=== PATIENT | male | born 2000 | race Caucasian/White ===

== ENCOUNTER 2020-05-28 09:16 | Emergency (ER) | payer OTHER ==
[~2020-05-28] VITALS: Ht 188 cm; Wt 100.6 kg
--- NOTE | 2020-05-28 10:38 | REP ---
INDICATION: R ankle pain. COMPARISON: None. TECHNIQUE: Four views. FINDINGS: Four views of the right ankle demonstrate intact ankle mortise. No fracture or subluxation is seen. Soft tissues are unremarkable. IMPRESSION: Negative right ankle radiographs. No fracture seen. <Electronically signed by Alejandro Agudelo > 05/28/20 0695
--- NOTE | 2020-05-28 10:39 | REP ---
INDICATION: R foot pain, ttp 4/5th metacarpals. COMPARISON: Ankle series today TECHNIQUE: Four views FINDINGS: There is no fracture or focal bone lesion. Articulations in between the phalanges and carpal bones are unremarkable the MTP joints were intact talonavicular and calcaneocuboid joints normal. Subtalar joints intact talus calcaneus without fracture. No heel spurs. IMPRESSION: Negative right foot for fracture. <Electronically signed by Saran Rios > 05/28/20 3112
[2020-05-28 11:41] VITALS: BP 138/77
== END 2020-05-28 11:44 | disposition home or self-care (01) ==
LOC: M ED 09:16
DX: S93.601A Unspecified sprain of right foot, initial encounter (principal); S96.211A Strain of intrinsic muscle and tendon at ankle and foot level, right foot, initial encounter; X50.1XXA Overexertion from prolonged static or awkward postures, initial encounter; Y92.138 Other place on military base as the place of occurrence of the external cause; Y93.02 Activity, running; Y99.1 Military activity

== ENCOUNTER 2020-08-16 08:30 | Emergency (ER) | payer OTHER ==
[~2020-08-16] VITALS: Ht 188 cm; Wt 112.0 kg
--- OUTSIDE RECORDS SUMMARY | 2020-08-16 08:36 | CCD ---
Author Author [facility] Organization [facility] Address Unknown Phone Unavailable Support Name Relationship Address Phone [facility] Next Of Kin [address] [place] [address] Unavailable WILLARD HWANG Next Of Kin [address] [place] [address] Re-disclosure Warning The records that you are about to access may contain information from federally-assisted alcohol or drug abuse programs. If such information is present, then the following federally mandated warning applies: This information has been disclosed to you from records protected by federal confidentiality rules (42 CFR part 2). The federal rules prohibit you from making any further disclosure of this information unless further disclosure is expressly permitted by the written consent of the person to whom it pertains or as otherwise permitted by 42 CFR part 2. A general authorization for the release of medical or other information is NOT sufficient for this purpose. The Federal rules restrict any use of the information to criminally investigate or prosecute any alcohol or drug abuse patient.The records that you are about to access may contain highly sensitive health information, the redisclosure of which is protected by Article 27-F of the [facility] Public Health law. If you continue you may have access to information: Regarding HIV / AIDS; Provided by facilities licensed or operated by the [facility] Office of Mental Health; or Provided by the [facility] Office for People With Developmental Disabilities. If such information is present, then the following [facility] mandated warning applies: This information has been disclosed to you from confidential records which are protected by state law. State law prohibits you from making any further disclosure of this information without the specific written consent of the person to whom it pertains, or as otherwise permitted by law. Any unauthorized further disclosure in violation of state law may result in a fine or penitentiary sentence or both. A general authorization for the release of medical or other information is NOT sufficient authorization for further disc losure. Insurance Providers Payer name Policy type / Coverage type Policy ID Covered constitution party ID Covered constitution party's relationship to flood Policy Flood Plan Information [employer] [id number]
[2020-08-16] MEDS ORDERED: NS 1,000 ML IV ONE (09:00)
[2020-08-16 09:15] LABS: BASO % 0.4 % (0.0-1.0); EOS # 0.4 10^3/uL (0.0-0.5); EOS % 5.6 % (0.0-3.0); HEMOGLOBIN 15.2 g/dl (13.5-17.5); LYMPH # 2.1 10^3/uL (1.5-5.0); LYMPH % 28.5 % (24.0-44.0); MEAN CORPUSCULAR HGB CONC 32.3 g/dl (32.0-36.5); MEAN CORPUSCULAR VOLUME 92.7 fl (80.0-96.0); MONO # 0.6 10^3/uL (0.0-0.8); MONO % 7.8 % (0.0-5.0); NEUTROPHILS # 4.2 10^3/uL (1.5-8.5); NEUTROPHILS % 57.4 % (36.0-66.0); PLATELET COUNT, AUTOMATED 243 10^3/uL (150-450); RED BLOOD COUNT 5.07 10^6/uL (4.30-6.10); WHITE BLOOD COUNT 7.3 10^3/uL (4.0-10.0)
[2020-08-16] MEDS ORDERED: ISOVUE-370 76% 100ML VIAL As Ordered ONE (09:16)
--- OUTSIDE RECORDS SUMMARY | 2020-08-16 09:39 | CCD ---
Author Author [facility] Organization [facility] Address Unknown Phone Unavailable Support Name Relationship Address Phone [facility] Next Of Kin [address] [place] [address] Unavailable WILLARD HWANG Next Of Kin [address] [place] [address] Re-disclosure Warning The records that you are [...] is protected by Article 27-F of the [facility] Public Health law. If you continue you may have access to information: Regarding HIV / AIDS; Provided by facilities licensed or operated by the [facility] Office of Mental Health; or Provided by the [facility] Office for People With Developmental Disabilities. If such information is present, then the following [facility] mandated warning applies: This information has been [...] law may result in a fine or longterm sentence or both. A general authorization for the release of medical or other information is NOT sufficient authorization for further disc losure. Insurance Providers Payer name Policy type / Coverage type Policy ID Covered constitution party ID Covered constitution party's relationship to flood Policy Flood Plan Information [facility] [employer] [id number]
[2020-08-16 09:49] LABS: ALBUMIN 4.4 GM/DL (3.2-5.2); BILIRUBIN,DIRECT 0.3 MG/DL (0.0-0.2); BILIRUBIN,TOTAL 0.8 MG/DL (0.2-1.0); TOTAL PROTEIN 7.6 GM/DL (6.4-8.2)
--- NOTE | 2020-08-16 09:50 | REP ---
INDICATION: rlq pain r/o appy. COMPARISON: None TECHNIQUE: Axial contrast-enhanced images from the lung bases to the pubic symphysis using 100 cc Isovue 370 intravenous contrast material. Coronal and sagittal reformations obtained. This CT examination was performed using the following dose reduction techniques: Automated exposure control, adjustment of mA and/or kv according to the patient's size, and the use of iterative reconstruction technique. FINDINGS: Liver, spleen, pancreas, gallbladder, bilateral adrenal glands and kidneys are normal. The terminal ileum, cecum and appendix are normal in the right lower quadrant. There is mild mucosal thickening and subtle stranding involving the proximal transverse colon which may reflect a focal area of infectious/inflammatory colitis and possible adjacent epiploic appendagitis. Moderate fecal stasis is appreciated. No evidence for bowel obstruction or free air to suggest perforation. Pelvis demonstrates normal bladder and age-appropriate prostate/seminal vesicles. No ascites. No free air. No intraperitoneal or retroperitoneal adenopathy. Abdominal aorta and vasculature appear normal. Musculoskeletal structures are intact and without acute osseous abnormality. IMPRESSION: 1. Normal cecum, terminal ileum and appendix identified in the right lower quadrant. 2. Short segment of mucosal thickening with subtle pericolonic stranding involving the proximal transverse colon suggesting an area of infectious/inflammatory colitis and possible epiploic appendagitis (images [id number]). <Electronically signed by Austin Hwang > 08/16/20 0995
[2020-08-16] MEDS ORDERED: AUGM875T28 PO (10:41)
[2020-08-16 10:51] VITALS: BP 138/75
--- NOTE | 2020-08-17 07:25 | ED PDOC ---
Post-Departure Follow-Up radiology report faxed to [facility] Lalita Arias MD Aug 17, 2020 07:24
== END 2020-08-16 10:52 | disposition home or self-care (01) ==
LOC: M ED 08:30
DX: K38.8 Other specified diseases of appendix (principal); K52.9 Noninfective gastroenteritis and colitis, unspecified
CPT/HCPCS: 74177; 80047; 80076; 85025; 96360; 99284; Q9967